=== PATIENT | male | born 1980 | race Caucasian/White ===

== ENCOUNTER 2023-12-26 03:20 | Emergency (ER) | payer MEDICAID ==
[~2023-12-26] VITALS: Ht 175.3 cm; Wt 85.0 kg
[2023-12-26 03:30] VITALS: BP 125/76; PULSE 93; RESP 16; TEMP 98.2; O2SAT 100
== END 2023-12-26 05:32 | disposition left against medical advice (07) ==
LOC: ER 05:07
DX: R68.89 Other general symptoms and signs (principal); Z53.21 Procedure and treatment not carried out due to patient leaving prior to being seen by health care provider